=== PATIENT | female | born 1985 | race African-American/Black ===

== ENCOUNTER 2019-04-18 10:57 | Emergency (ER) | payer SELFPAY ==
[~2019-04-18] VITALS: Ht 167.6 cm; Wt 95.3 kg
[2019-04-18 11:26] VITALS: BP 136/89
== END 2019-04-18 13:05 | disposition home or self-care (01) ==
LOC: ER 10:57
DX: L30.9 Dermatitis, unspecified (principal)

== ENCOUNTER 2021-03-11 15:37 | Emergency (ER) | payer MEDICAID ==
[~2021-03-11] VITALS: Ht 172.7 cm; Wt 79.4 kg
[2021-03-11 19:32] VITALS: BP 149/94
== END 2021-03-11 19:37 | disposition home or self-care (01) ==
LOC: ER 15:37
DX: Z03.821 Encounter for observation for suspected ingested foreign body ruled out (principal)
CPT/HCPCS: 74018